=== PATIENT | male | born 1945 | race Caucasian/White ===

== ENCOUNTER 2018-04-07 13:33 | Observation (INO) | payer OTHER ==
[2018-04-07 13:38] VITALS: BMI 22.7
[2018-04-07] MEDS ORDERED: SODIUM CHLORIDE 1,000 ML IV STA (14:42)
--- NOTE | 2018-04-07 14:42 | PDOC ---
History of Present Illness <Kirstin Villanueva - Last Filed: 04/07/18 15:29> - General History Source: Patient Exam Limitations: No Limitations - History of Present Illness Initial Comments: 04/07/18 16:41 Mr. 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 The patient states he is visiting [place] from [place], he was at a [facility] earlier today with his police and EMS friends. The patient states around 1:00 pm he received a call from his brother, who reported that his younger brother just . The patient reports he was trying to call his sister when a sudden onset of lightheadedness and generalized weakness presented. The patient reports he immediately sat down. The patient states his friends noticed that he was pale, and called EMS. The patient reports the firefighters gave him an ASA, with mild relief. Patient denies chest pain, shortness of breath or N/V. The patient reports 2 previous similar episode with the onset his PCP states was secondary to hypoglycemia from not eating anything. The patient reports he didnt have much to eat today. The patient reports being compliant with his medications today. ROS (+) Weakness and lightheadedness ROS (-) Chest pain, SOB, diaphoresis, fever, chills, nausea, vomiting, pain, LOC or falling. Denies the discomfort is similar to prior MT. At the ED, patient denies feeling lightheaded or weak. Allergies: Social history: Social use of alcohol. No past or present use of tobacco or recreational drugs. Surgical history: Cardiac Cath and Pacemaker. PCP: In [place]. <Paulette Heart - Last Filed: 04/07/18 16:45> - General Chief Complaint: Weakness Stated Complaint: Weakness Time Seen by Provider: 04/07/18 14:22 Past History <Kirstin Villanueva - Last Filed: 04/07/18 15:29> - Past Medical History Asthma: Yes Cardiac Disorders: Yes (MT, PACEMAKER) COPD: No HTN: Yes Hypercholesterolemia: Yes - Surgical History Cardiac Surgery: Yes (PACEMAKER) - Suicide/Smoking/Psychosocial Hx Smoking History: Never smoked <Paulette Heart - Last Filed: 04/07/18 16:45> - Past Medical History Allergies/Adverse Reactions: Allergies Allergy/AdvReac Type Severity Reaction Status Date / Time No Known Allergies Allergy Verified 04/07/18 13:37 Home Medications: Ambulatory Orders Aspirin 81 mg PO DAILY 04/07/18 Clopidogrel Bisulfate [Plavix -] 75 mg PO DAILY 04/07/18 Review of Systems - Review of Systems Able to Perform ROS?: Yes Comments:: 04/07/18 16:41 GENERAL/CONSTITUTIONAL: (+) Generalized weakness. No fever or chills. no sweats. HEAD, EYES, EARS, NOSE AND THROAT: No change in vision or hearing. No ear pain or discharge. No sore throat or mouth pain. No difficulty swallowing. No congestion. CARDIOVASCULAR: No chest pain or palpitations, syncope or edema. +near syncope RESPIRATORY: No SOB, cough, wheezing, or hemoptysis. GASTROINTESTINAL No nausea/vomiting. No diarrhea or constipation. No bloody stools. GENITOURINARY: No hematuria, dysuria, frequency, urgency or other changes. MUSCULOSKELETAL: No joint or muscle swelling or pain. No neck or back pain. SKIN: No rash or changes in skin color or lesions. NEUROLOGIC: (+) Lightheadedness. No headache, vertigo, loss of consciousness, or change in strength/sensation. No gait instability. HEMATOLOGIC/LYMPHATIC: No anemia, easy bruising/bleeding, or history of blood clots. ALLERGIC/IMMUNOLOGIC: No allergies All other systems reviewed and negative, or as documented in HPI. <Paulette Heart - Last Filed: 04/07/18 16:45> *Physical Exam - Vital Signs Last Vital Signs Temp Pulse Resp BP Pulse Ox 98.5 F 62 18 127/70 96 04/07/18 13:34 04/07/18 13:34 04/07/18 13:34 04/07/18 13:34 04/07/18 13:34 - Physical Exam Comments: 04/07/18 15:29 General: Well appearing, awake and alert, NAD. HEENT: NCAT, PERRL, EOMI, clear conjunctiva, anicteric, moist mucus membranes, clear oropharynx, no oral lesions.. Neck: neck supple, FROM Resp: CTAB, normal and even respirations, no respiratory distress CVS: RRR, no murmurs, 2+ peripheral pulses throughout, no peripheral edema Abdomen: soft, NTND, no peritoneal signs. Back: nontender, normal inspection and ROM MSK: no edema, [place] x4, ROM intact. No clubbing or cyanosis. normal bulk and tone. Neuro: alert, oriented appropriately; no focal neurologic deficits Skin: warm and well perfused, cap refill <2 sec, normal color <Kirstin Villanueva - Last Filed: 04/07/18 15:29> - Vital Signs Last Vital Signs Temp Pulse Resp BP Pulse Ox 98.5 F 62 18 127/70 96 04/07/18 13:34 04/07/18 13:34 04/07/18 13:34 04/07/18 13:34 04/07/18 13:34 <Paulette Heart - Last Filed: 04/07/18 16:45> Procedures - Bedside Ultrasound Bedside Ultrasound: Cardiac Remarks: 04/07/18 15:08 POCUS echo performed, indication includes dizziness/near syncope. views obtained (PSLA, PSS, A4, SX). Findings include normal EF >50% with good contractility, no pericardial effusion. Normal aortic root <4cm. RV<LV. Impression: no acute findings. 04/07/18 16:45 <Paulette Heart - Last Filed: 04/07/18 16:45> ED Treatment Course - LABORATORY CBC & Chemistry Diagram: 04/07/18 15:13 04/07/18 15:13 <Kirstin Villanueva - Last Filed: 04/07/18 15:29> - LABORATORY CBC & Chemistry Diagram: 04/07/18 15:13 04/07/18 15:13 <Paulette Heart - Last Filed: 04/07/18 16:45> Medical Decision Making - Medical Decision Making 04/07/18 14:43 72 YOM with h/o symptomatic bradycardia s/p PPM, HTN, HLD, CAD (last cath in 2016, with ~50% obstruction) on ASA and plavix, asthma presenting with acute onset of weakness, dizziness, palpitations and shakiness since 1pm, when he found out his brother . vitals wnl, normal rate and normotensive. EKG AV Paced pattern at 60 bpm. heart score cannot be applied, no cp or sob. however +dizziness/near syncope. POCUS echo with normal EF, no pericardial effusion, normal Ao root <3cm and RV< LV, no acute findings. trop negative x1, lytes and labs wnl. DDx includes ACS, angina, chest pain NOS, costochondritis, GERD, pleurisy, anxiety, esophageal spasm. Low suspicion for pulmonary embolism or dissection with POCUS findings. Plan for admit hospitalist team, telemetry observation, ppm interrogation, formal comprehensive echo, to r/o ischemia, serial trops and EKG/tele monitoring with stressing event.. pt made aware of impression and plan, agreeable. 04/07/18 16:42 04/07/18 16:44 04/07/18 16:44 <Paulette Heart - Last Filed: 04/07/18 16:45> *DC/Admit/Observation/Transfer - Attestations Scribe Attestion: 04/07/18 15:29 Documentation prepared by Kirstin Villanueva, acting as medical services manager for Paulette Heart MD. <Kirstin Villanueva - Last Filed: 04/07/18 15:29> - Discharge Dispostion Decision to Admit order: Yes Decision to Admit order Date/Time: 04/07/18 16:44 Decision to Admit Order Category Date Time Status Decision to Admit to Hospital Routine Admission 04/07/18 15:46 Active <Paulette Heart - Last Filed: 04/07/18 16:45> Diagnosis at time of Disposition: Near syncope, Weakness - Discharge Dispostion Condition at time of disposition: Good
[2018-04-07 15:29] LABS: BASO % 0.4 % (0-2.0); EOS % 1.2 % (0-4.5); HEMATOCRIT 40.3 % (35.4-49); HEMOGLOBIN 13.4 GM/dL (11.7-16.9); LYMPH % 11.7 % (8-40); MCH 31.7 pg (25.7-33.7); MCHC 33.2 g/dl (32.0-35.9); MEAN CELL VOLUME 95.5 fl (80-96); MEAN PLT VOLUME 8.4 fl (7.5-11.1); MONO % 9.9 % (3.8-10.2); NEUT % 76.8 % (42.8-82.8); PLATELET COUNT 265 K/MM3 (134-434); RBC 4.22 M/mm3 (4.00-5.60); RDW 13.7 % (11.9-15.9); WHITE BLOOD COUNT 8.1 K/mm3 (4.0-10.0)
[2018-04-07 15:44] LABS: ALBUMIN 3.4 g/dl (3.4-5.0); ALK PHOS 61 U/L (45-117); ANION GAP 10 MMOL/L (8-16); BILIRUBIN,TOTAL 0.5 mg/dL (0.2-1); BLOOD UREA NITROGEN 19 mg/dL (7-18); CALCIUM 8.8 mg/dL (8.5-10.1); CHLORIDE 109 mmol/L (98-107); CO2 22 mmol/L (21-32); CREATININE 1.1 mg/dL (0.55-1.3); GLUCOSE,RANDOM 94 mg/dL (74-106); POTASSIUM 4.2 mmol/L (3.5-5.1); SGOT/AST 14 U/L (15-37); SGPT/ALT 25 U/L (13-61); SODIUM 141 mmol/L (136-145); TOT PROT 6.6 g/dl (6.4-8.2)
--- NOTE | 2018-04-07 16:13 | PN ---
Teaching Attending Note Name of Resident: John Salmeron ATTENDING PHYSICIAN STATEMENT I saw and evaluated the patient. I reviewed the resident's note and discussed the case with the resident. I agree with the resident's findings and plan as documented with exceptions below. SUBJECTIVE: 72 yom with PMHx of symptomatic bradycardia s/p PPM, Non obstructive CAD on cath 2015, HTN, HLD, heard the news that his brother today, after felt weak, washed out, was noted palor and assisted to a chair and drank some water. Symptoms resolved but was advised to come to ED. Symptoms full resolved before arrival to the ED, no recurrence since. Minimal PO intake today. SImilar episode 6 months ago when was admitted and reportedly had echo with no concerns. Gives h/o positional dizziness. Patient has been uptodate with his cardiac follow up, last stress test in 12/2017 , reportedly unremarkable. due for his PPM battery change soon, no concerns otherwise. OBJECTIVE: Vital Signs Period Temp Pulse Resp BP Sys/Mae Pulse Ox Last 24 Hr 98.5 F 62 18 127/70 96 Intake & Output 04/04/18 04/05/18 04/06/18 04/07/18 23:59 23:59 23:59 23:59 Weight 177 lb GENERAL: Awake, alert, and fully oriented, in no acute distress. HEAD: Normal with no signs of trauma. EYES: Pupils equal, round and reactive to light, extraocular movements intact, sclera anicteric, conjunctiva clear. No lid lag. EARS, NOSE, THROAT: Ears normal, nares patent, oropharynx clear without exudates. Moist mucous membranes. NECK: Normal range of motion, supple without lymphadenopathy, JVD, or masses, no carotid bruit. LUNGS: Breath sounds equal, clear to auscultation bilaterally. No wheezes, and no crackles. No accessory muscle use. HEART: Regular rate and rhythm, normal S1 and S2 without murmur, rub or gallop. ABDOMEN: Soft, nontender, not distended, normoactive bowel sounds, no guarding, no rebound, no masses. No hepatomegaly or splenomegaly. MUSCULOSKELETAL: Normal range of motion at all joints. No bony deformities or tenderness. No CVA tenderness. UPPER EXTREMITIES: 2+ pulses, warm, well-perfused. No cyanosis. No clubbing. No peripheral edema. LOWER EXTREMITIES: 2+ pulses, warm, well-perfused. No calf tenderness. No peripheral edema. NEUROLOGICAL: Cranial nerves II-XII intact. Normal speech. AAOx3, facial symmetry, power 5/5 tongue midline, physiological left mouth angular sagging corrected when checking power of facial muscles non focal exam, intact to light touch, PSYCHIATRIC: Cooperative. Good eye contact. Appropriate mood and affect. SKIN: Warm, dry, normal turgor, no rashes or lesions noted, normal capillary refill. Home Medications Medication Instructions Recorded Aspirin 81 mg PO DAILY 04/07/18 Clopidogrel Bisulfate [Plavix -] 75 mg PO DAILY 04/07/18 Active Medications Aspirin (Asa -) 81 mg PO DAILY [facility] Clopidogrel Bisulfate (Plavix -) 75 mg PO DAILY [facility] Enoxaparin Sodium (Lovenox -) 40 mg SQ DAILY [facility] Laboratory Results - last 24 hr 04/07/18 04/07/18 15:13 15:13 WBC 8.1 RBC 4.22 Hgb 13.4 Hct 40.3 MCV 95.5 MCH 31.7 MCHC 33.2 RDW 13.7 Plt Count 265 MPV 8.4 Absolute Neuts (auto) 6.2 Neutrophils % 76.8 Lymphocytes % 11.7 Monocytes % 9.9 Eosinophils % 1.2 Basophils % 0.4 Nucleated RBC % 0 Sodium 141 Potassium 4.2 Chloride 109 H Carbon Dioxide 22 Anion Gap 10 BUN 19 H Creatinine 1.1 Creat Clearance w eGFR > 60 Random Glucose 94 Calcium 8.8 Total Bilirubin 0.5 AST 14 L ALT 25 Alkaline Phosphatase 61 Troponin I < 0.02 Total Protein 6.6 Albumin 3.4 EKG: AV pacing CXR: pending ASSESSMENT AND PLAN: 72 yom with PMHx of above admitted with episode weakness/pallor after hearing news of his brother's . -Weakness/pallor,suspect pallor, r/o arrhtymia, low suspicion for ischemic etiology, unlikely neurological -bradycardia s/p PPM -Mild dehydration -Positional dizziness -Non obstructive CAD Plan; Telemetry, repeat trop. PPM check. Encourage oral hydration. Continue ASA/plavix/statin. retrieve prior home meds. Cardiology input. Dispo d/c in 24 hours if no new events. Plan discussed with patient in detail, all questions answered. Total admit time 50 min.
--- NOTE | 2018-04-07 17:14 | HP ---
CHIEF COMPLAINT: weakness, palpitations PCP: in [place] HISTORY OF PRESENT ILLNESS: 72 year old male with a history of symptomatic bradycardia (s/p [employer] pacemaker placement 8 years ago, last interrogated year ago), hypertension, hyperlipidemia, coronary artery disease (last cath 2016 w/o stents , found 50% obstruction) presents for dizziness, weakness and palpitations at a picnic around 1 pm today. 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 Not more than 2 minutes after he received the call, he became very fatigued, dizzy and weak. Denied overt chest pain. He reports that he had this happen once before about 8 months ago without precipitating factors, for which he was hospitalized for 1 day and found everything to be normal. Reports that he is feeling much better now. Denies chest pain, SOB, nausea, vomiting, diarrhea, fevers, chills. Had colonoscopy 1 year ago that had 1 benign polyp that was removed. ER course was notable for: (1) trop normal (2) EKG AV paced rhythm (3) labs wnl Recent Travel: traveled from [place] PAST MEDICAL HISTORY: bradycardia, hypertension, hyperlipidemia, CAD PAST SURGICAL HISTORY: appendectomy, pacemaker placement ([employer]) Social History: Smoking: never Alcohol: occasional Drugs: never Family History: father with colon cancer Allergies No Known Allergies Allergy (Verified 04/07/18 13:37) HOME MEDICATIONS: Home Medications Medication Instructions Recorded Aspirin 81 mg PO DAILY 04/07/18 Clopidogrel Bisulfate [Plavix -] 75 mg PO DAILY 04/07/18 REVIEW OF SYSTEMS CONSTITUTIONAL: Absent: fever, chills, diaphoresis, generalized weakness, malaise, loss of appetite, weight change HEENT: Absent: rhinorrhea, nasal congestion, throat pain, throat swelling, difficulty swallowing, mouth swelling, ear pain, eye pain, visual changes CARDIOVASCULAR: Absent: chest pain, syncope, palpitations, irregular heart rate, lightheadedness , peripheral edema RESPIRATORY: Absent: cough, shortness of breath, dyspnea with exertion, orthopnea, wheezing, stridor, hemoptysis GASTROINTESTINAL: Absent: abdominal pain, abdominal distension, nausea, vomiting, diarrhea, constipation, melena, hematochezia GENITOURINARY: Absent: dysuria, frequency, urgency, hesitancy, hematuria, flank pain, genital pain MUSCULOSKELETAL: Absent: myalgia, arthralgia, joint swelling, back pain, neck pain SKIN: Absent: rash, itching, pallor HEMATOLOGIC/IMMUNOLOGIC: Absent: easy bleeding, easy bruising, lymphadenopathy, frequent infections ENDOCRINE: Absent: unexplained weight gain, unexplained weight loss, heat intolerance, cold intolerance NEUROLOGIC: Absent: headache, focal weakness or paresthesias, dizziness, unsteady gait, seizure, mental status changes, bladder or bowel incontinence PSYCHIATRIC: Absent: anxiety, depression, suicidal or homicidal ideation, hallucinations. PHYSICAL EXAMINATION Vital Signs - 24 hr 04/07/18 04/07/18 13:34 16:25 Temperature 98.5 F Pulse Rate 62 Pulse Rate [ 61 Apical] Respiratory 18 22 H Rate Blood Pressure 127/70 Blood Pressure 146/68 [Left Arm] O2 Sat by Pulse 96 98 Oximetry (%) GENERAL: Awake, alert, and fully oriented, in no acute distress. HEAD: Normal with no signs of trauma. EYES: Pupils equal, round and reactive to light, extraocular movements intact, sclera anicteric, conjunctiva clear. No lid lag. EARS, NOSE, THROAT: Ears normal, nares patent, oropharynx clear without exudates. Moist mucous membranes. NECK: Normal range of motion, supple without lymphadenopathy, JVD, or masses. LUNGS: Breath sounds equal, clear to auscultation bilaterally. No wheezes, and no crackles. No accessory muscle use. HEART: Regular rate and rhythm, normal S1 and S2 without murmur, rub or gallop. ABDOMEN: Soft, nontender, not distended, normoactive bowel sounds, no guarding, no rebound, no masses. No hepatomegaly or splenomegaly. MUSCULOSKELETAL: Normal range of motion at all joints. No bony deformities or tenderness. No CVA tenderness. UPPER EXTREMITIES: 2+ pulses, warm, well-perfused. No cyanosis. No clubbing. No peripheral edema. LOWER EXTREMITIES: 2+ pulses, warm, well-perfused. No calf tenderness. No peripheral edema. NEUROLOGICAL: Cranial nerves II-XII intact. Normal speech. Normal gait. PSYCHIATRIC: Cooperative. Good eye contact. Appropriate mood and affect. SKIN: Warm, dry, normal turgor, no rashes or lesions noted, normal capillary refill. Laboratory Results - last 24 hr 04/07/18 04/07/18 15:13 15:13 WBC 8.1 RBC 4.22 Hgb 13.4 Hct 40.3 MCV 95.5 MCH 31.7 MCHC 33.2 RDW 13.7 Plt Count 265 MPV 8.4 Absolute Neuts (auto) 6.2 Neutrophils % 76.8 Lymphocytes % 11.7 Monocytes % 9.9 Eosinophils % 1.2 Basophils % 0.4 Nucleated RBC % 0 Sodium 141 Potassium 4.2 Chloride 109 H Carbon Dioxide 22 Anion Gap 10 BUN 19 H Creatinine 1.1 Creat Clearance w eGFR > 60 Random Glucose 94 Calcium 8.8 Total Bilirubin 0.5 AST 14 L ALT 25 Alkaline Phosphatase 61 Troponin I < 0.02 Total Protein 6.6 Albumin 3.4 ASSESSMENT/PLAN: 72 year old male with a history of symptomatic bradycardia (s/p [employer] pacemaker placement 8 years ago, last interrogated year ago), hypertension, hyperlipidemia, coronary artery disease (last cath 2015 w/o stents , found 50% obstruction) presents for dizziness, weakness and palpitations at a picnic around 1 pm today. #Fatigue, weakness, dizziness: likely 2/2 stress and emotional response to patient's brother passing away, but due to cardiac history, will admit for workup to rule out acute coronary syndrome -echocardiogram -last pacemaker interrogation was around 1 year ago, will get it interrogated -cardiology consulted Dr. Recinos -EKG AV paced rhythm -troponins normal -need to confirm plavix dose, pharmacy patient provided did not have plavix listed -atorvastatin 40mg #Hypertension -patient is on home metoprolol, patient does not remember the dose at this time , blood pressure is normal, watch tomorrow and resume once confirmed #Hyperlipidemia -give atorvastatin 40 #FEN -no standing fluids -lytes normal -cardiac diet #Prophylaxis -lovenox 40 #Disposition -admit tele obs Visit type - Emergency Visit Emergency Visit: Yes ED Registration Date: 04/07/18 Care time: The patient presented to the Emergency Department on the above date and was hospitalized for further evaluation of their emergent condition. - New Patient This patient is new to me today: Yes Date on this admission: 04/07/18 - Critical Care Critical Care patient: No Hospitalist Screening - Colonoscopy Questionnaire Colonoscopy Questionnaire: Colonoscopy Questionnaire - Patient: 50 - 75 years old and never had a screening colonoscopy: No History of colon or rectal polyps, or CA: No History of IBD, Crohn's disease or UC: No History of abdominal radiation therapy as a child: No - Relative: 1 with colon or rectal CA, or polyps at age 60 or younger: Yes Colon or rectal CA diagnosed at age 45 or younger: No Multiple relatives with colon or rectal CA: Yes - Outcome: Screening Result: Positive Screen
[2018-04-07] MEDS: ENOXAPARIN NA (PORCINE) 40 MG/0.4 ML DISP.SYRIN SQ SCH (19:02)
[2018-04-07] MEDS ORDERED: ATORVASTATIN CA 40 MG TABLET (FP) PO SCH (22:00)
--- NOTE | 2018-04-07 23:00 | EKG ---
Test Reason : Blood Pressure : / mmHG Vent. Rate : 060 BPM Atrial Rate : 059 BPM P-R Int : 000 ms QRS Dur : 172 ms QT Int : 464 ms P-R-T Axes : 094 -76 086 degrees QTc Int : 464 ms AV dual-paced rhythm ABNORMAL ECG NO PREVIOUS ECGS AVAILABLE Confirmed by EMILY FAJARDO MD ([id number]) on 04/07/2018 11:00:09 PM Referred By: Confirmed By:EMILY FAJARDO MD
[2018-04-08 07:00] VITALS: PULSE 63
[2018-04-08 07:22] LABS: HEMOGLOBIN 12.4 GM/dL (11.7-16.9); MCH 31.7 pg (25.7-33.7); MCHC 33.4 g/dl (32.0-35.9); MEAN CELL VOLUME 94.8 fl (80-96); MEAN PLT VOLUME 8.5 fl (7.5-11.1); PLATELET COUNT 223 K/MM3 (134-434); RDW 13.9 % (11.9-15.9); WHITE BLOOD COUNT 6.7 K/mm3 (4.0-10.0)
--- NOTE | 2018-04-08 08:39 | CON.CARD ---
Consult Consult Specialty:: cardiology Reason for Consultation:: pre syncope - History of Present Illness Chief Complaint: Pt A&Ox3; asymptomatic History of Present Illness: Bao Hernandes is a 72-year-old male with past medical history significant for TN 2 years ago with cardiac cath that showed 50% blockage no stents placement, on Plavix, pacemaker placement (battery replacement may be needed within a year) for bradycardia (2009), HTN, asthma,and HLD presents to the emergency department with weakness and lightheadedness since 1:00 pm today. The patient states [place], he was at a [facility] earlier today with his police and EMS friends. The patient states around 1:00 pm he received a call from his brother, who reported that his younger brother just . The patient reports he was trying to call his sister when a sudden onset of lightheadedness and generalized weakness presented. The patient reports he immediately sat down. The patient states his friends noticed that he was pale, and called EMS. The patient reports the firefighters gave him an ASA, with mild relief. Patient denies chest pain, shortness of breath or N/V. The patient reports 2 previous similar episode with the onset his PCP states was secondary to hypoglycemia from not eating anything. The patient reports he didnt have much to eat today. The patient reports being compliant with his medications today. ROS (+) Weakness and lightheadedness ROS (-) Chest pain, SOB, diaphoresis, fever, chills, nausea, vomiting, pain, LOC or falling. Denies the discomfort is similar to prior TN. At the ED, patient denies feeling lightheaded or weak. Allergies: Social history: Social use of alcohol. No past or present use of tobacco or recreational drugs. Surgical history: Cardiac Cath and Pacemaker. - History Source History Provided By: Patient, Medical Record Limitations to Obtaining History: No Limitations - Past Medical History Cardio/Vascular: Yes: CAD, CHF, HTN, TN, Other (s/p PPM) Pulmonary: Yes: Asthma - Past Surgical History Additional Surgical History: coronary angiogram - Smoking History Smoking history: Former smoker Have you smoked in the past 12 months: No Home Medications - Allergies Allergies/Adverse Reactions: Allergies Allergy/AdvReac Type Severity Reaction Status Date / Time No Known Allergies Allergy Verified 04/07/18 13:37 - Home Medications Home Medications: Ambulatory Orders Aspirin 81 mg PO DAILY 04/07/18 Clopidogrel Bisulfate [Plavix -] 75 mg PO DAILY 04/07/18 Family Disease History - Family Disease History Family Disease History: Heart Disease: Brother ( yesterday after completeing a triathalon) Review of Systems - Review of Systems Constitutional: reports: No Symptoms Eyes: reports: No Symptoms HENT: reports: No Symptoms Neck: reports: No Symptoms Cardiovascular: reports: No Symptoms Respiratory: reports: No Symptoms Gastrointestinal: reports: No Symptoms Genitourinary: reports: No Symptoms Breasts: reports: No Symptoms Reported Musculoskeletal: reports: No Symptoms Integumentary: reports: No Symptoms Neurological: reports: No Symptoms Endocrine: reports: No Symptoms Hematology/Lymphatic: reports: No Symptoms Psychiatric: reports: Anxiety (emotional shock (hearing of unexpected of brother) just before the near-faint) - Risk Factors Known Risk Factors: Yes: Age, Gender, Hypercholesterolemia, Hypertension, Prior TN /Emb Stroke Vital Signs: Vital Signs Temperature 97.8 F 04/08/18 06:00 Pulse Rate 63 04/08/18 06:00 Respiratory Rate 04/08/18 06:00 Blood Pressure 127/60 04/08/18 06:00 O2 Sat by Pulse Oximetry (%) 98 04/08/18 03:07 Constitutional: Yes: Anxious Eyes: Yes: WNL HENT: Yes: WNL Neck: Yes: WNL Respiratory: Yes: WNL Gastrointestinal: Yes: WNL Renal/: No: Anuria Cardiovascular: Yes: WNL JVD: No Carotid Bruit: No PMI: Non-Displaced Heart Sounds: Yes: S1, Split S2 Musculoskeletal: Yes: WNL Extremities: Yes: WNL Edema: No Peripheral Pulses WNL: Yes Integumentary: Yes: WNL Neurological: Yes: WNL ...Motor Strength: WNL Psychiatric: Yes: Alert, Oriented, Other - Other Data Labs, Other Data: CBC, BMP 04/08/18 06:20 Troponin, BNP 04/07/18 04/07/18 15:13 21:10 Troponin I < 0.02 < 0.02 Troponin, BNP 04/07/18 04/07/18 15:13 21:10 Troponin I < 0.02 < 0.02 Imaging - Results Chest X-ray: Image Reviewed EKG: Image Reviewed (AV dual-paced rhythm) Problem List - Problems (1) State of emotional shock and stress Assessment/Plan: profound shock at hearing yesterday that his older brother had just after completing a triathalon. F/u orrthostatic VS TSH GLucose checks WNL. Keep hydrated. Consider anxiolytic medication. Psychological counseling. Code(s): R45.7 - STATE OF EMOTIONAL SHOCK AND STRESS, UNSPECIFIED (2) Status post myocardial infarction Assessment/Plan: hx TN 2 years ago with 50% lesion; no PIC done. Stress MIBI 12/2017 reportedly negative for ishcemia (done in [place]). TNI < 0.02 x 3 this admission. No acute STT changes on EKG; no arrhythmias or pauses on telemetry; pt has PPM. From cardiac standpoint, pt may be followed as outpatient. Consider at least temporary treatment for anxiety/depression. Code(s): I25.2 - OLD MYOCARDIAL INFARCTION (3) Hyperlipidemia Assessment/Plan: On lipitor; f/u lipid panel. F/u TSH. Code(s): E78.5 - HYPERLIPIDEMIA, UNSPECIFIED
[2018-04-08] MEDS ORDERED: ASPIRIN 81 MG CHEWABLE TABLETS PO SCH (10:00)
[2018-04-08] MEDS ORDERED: CLOPIDOGREL BISULFATE 75 MG TABLET (FP) PO SCH (10:00)
[2018-04-08] MEDS: ENOXAPARIN NA (PORCINE) 40 MG/0.4 ML DISP.SYRIN SQ SCH (10:04)
[2018-04-08 10:11] LABS: ANION GAP 10 MMOL/L (8-16); BLOOD UREA NITROGEN 21 mg/dL (7-18); CALCIUM 8.7 mg/dL (8.5-10.1); CHLORIDE 111 mmol/L (98-107); CHOLESTEROL 143 mg/dL (50-200); CO2 22 mmol/L (21-32); CREATININE 0.9 mg/dL (0.55-1.3); GLUCOSE,RANDOM 86 mg/dL (74-106); HDL CHOLESTEROL 58 mg/dL (40-60); PHOSPHOROUS 3.5 mg/dL (2.5-4.9); POTASSIUM 4.3 mmol/L (3.5-5.1); SODIUM 143 mmol/L (136-145); TRIGLYCERIDES 63 mg/dL (0-150)
--- NOTE | 2018-04-08 10:25 | DS ---
Physical Exam: SUBJECTIVE: Patient seen and examined, no events overnight. NO further concerns , ambulating well, tolerating diet. OBJECTIVE: Vital Signs Period Temp Pulse Resp BP Sys/Mae Pulse Ox Last 24 Hr 97.8 F-98.5 F 60-63 18-22 111-146/57-70 95-98 PHYSICAL EXAM GENERAL: sitting in bed, reading a book, no acute distress CVS:S1S2 regular Chest: CTAB, no rales or wheezing Abdomen:soft, NT, ND, positive bowel sounds Extremities: no edema Neuro: AAOX3, power 5/5 sensation intact and symmetric to light touch, EOMI, tongue midline, toes down going, no pronator drift, non focal and unchanged exam LABS Laboratory Results - last 24 hr 04/07/18 04/07/18 04/07/18 15:13 15:13 21:10 WBC 8.1 RBC 4.22 Hgb 13.4 Hct 40.3 MCV 95.5 MCH 31.7 MCHC 33.2 RDW 13.7 Plt Count 265 MPV 8.4 Absolute Neuts (auto) 6.2 Neutrophils % 76.8 Lymphocytes % 11.7 Monocytes % 9.9 Eosinophils % 1.2 Basophils % 0.4 Nucleated RBC % 0 Sodium 141 Potassium 4.2 Chloride 109 H Carbon Dioxide 22 Anion Gap 10 BUN 19 H Creatinine 1.1 Creat Clearance w eGFR > 60 Random Glucose 94 Hemoglobin A1c % Calcium 8.8 Phosphorus Magnesium Total Bilirubin 0.5 AST 14 L ALT 25 Alkaline Phosphatase 61 Creatine Kinase 38 Troponin I < 0.02 < 0.02 Total Protein 6.6 Albumin 3.4 Triglycerides Cholesterol Total LDL Cholesterol HDL Cholesterol TSH 04/08/18 04/08/18 04/08/18 06:20 06:20 06:20 WBC 6.7 RBC 3.90 L Hgb 12.4 Hct 37.0 MCV 94.8 MCH 31.7 MCHC 33.4 RDW 13.9 Plt Count 223 MPV 8.5 Absolute Neuts (auto) Neutrophils % Lymphocytes % Monocytes % Eosinophils % Basophils % Nucleated RBC % Sodium 143 Potassium 4.3 Chloride 111 H Carbon Dioxide 22 Anion Gap 10 BUN 21 H Creatinine 0.9 Creat Clearance w eGFR > 60 Random Glucose 86 Hemoglobin A1c % 5.4 Calcium 8.7 Phosphorus 3.5 Magnesium 2.0 Total Bilirubin AST ALT Alkaline Phosphatase Creatine Kinase Troponin I Total Protein Albumin Triglycerides 63 Cholesterol 143 Total LDL Cholesterol 75 HDL Cholesterol 58 TSH 1.73 04/08/18 06:20 WBC RBC Hgb Hct MCV MCH MCHC RDW Plt Count MPV Absolute Neuts (auto) Neutrophils % Lymphocytes % Monocytes % Eosinophils % Basophils % Nucleated RBC % Sodium Potassium Chloride Carbon Dioxide Anion Gap BUN Creatinine Creat Clearance w eGFR Random Glucose Hemoglobin A1c % Calcium Phosphorus Magnesium Total Bilirubin AST ALT Alkaline Phosphatase Creatine Kinase Troponin I Total Protein Albumin Triglycerides Cholesterol Total LDL Cholesterol HDL Cholesterol TSH Cancelled HOSPITAL COURSE: Date of Admission:04/07/18 Date of Discharge: 04/08/18 Minutes to complete discharge: 35 Discharge Summary Reason For Visit: PRE SYNCOPE Current Active Problems Hyperlipidemia (Acute) Near syncope (Acute) State of emotional shock and stress (Acute) Status post myocardial infarction (Acute) Weakness (Acute) Hospital Course: Patient was watched on telemetry with paced rhythm. His PPM was interrogated with no concerns. No further events were noted inhouse. He was advised adequate hydration and avoid sudden postural changes. He was evaluated by cardiology and deemed stable for discharge. Condition: Good - Instructions Diet, Activity, Other Instructions: You were watched on monitor with no concerns. Your Pacemaker was interrogated. Recommend rest, light activity and adequate hydration over next few days and resume activities as tolerated. Avoid sudden postural changes. COntinue all your medications as before. Call 911 or come to ED if any new dizziness, or new concerns noted. Disposition: HOME - Home Medications Comprehensive Discharge Medication List: Ambulatory Orders RX: Aspirin 81 mg PO DAILY 04/07/18 RX: Clopidogrel Bisulfate [Plavix -] 75 mg PO DAILY 04/07/18 This patient is new to me today: No Emergency Visit: Yes ED Registration Date: 04/07/18 Care time: The patient presented to the Emergency Department on the above date and was hospitalized for further evaluation of their emergent condition. Critical Care patient: No - Discharge Referral Referred to [facility] No
[2018-04-08 12:07] VITALS: BP 140/78; TEMP 97.7
--- NOTE | 2018-04-09 06:29 | EKG ---
Test Reason : Blood Pressure : / mmHG Vent. Rate : 060 BPM Atrial Rate : 681 BPM P-R Int : 000 ms QRS Dur : 158 ms QT Int : 452 ms P-R-T Axes : 000 -80 093 degrees QTc Int : 452 ms AV dual-paced rhythm ABNORMAL ECG WHEN COMPARED WITH ECG OF 07-APR-2018 14:44, NO SIGNIFICANT CHANGE WAS FOUND Confirmed by EMILY FAJARDO MD ([id number]) on 04/09/2018 6:29:05 AM Referred By: Simona GODOY Confirmed By:EMILY FAJARDO MD
== END 2018-04-08 12:47 | disposition home or self-care (01) | DRG 149 ==
LOC: JER 13:33 → JERBED 16:42 → INTOOBSV 19:11 → OBSVTOIN 19:11 → J4W 20:49
PROVIDERS: ADMIT Hospitalist; ATTEND Hospitalist
PROC: 3E0337Z Introduction of Electrolytic and Water Balance Substance into Peripheral Vein, Percutaneous Approach (ICD-10-PCS; principal; 2018-04-07)
PROC: 3E013GC Introduction of Other Therapeutic Substance into Subcutaneous Tissue, Percutaneous Approach (ICD-10-PCS; 2018-04-07)
DX: R42 Dizziness and giddiness (principal); I25.2 Old myocardial infarction; J45.909 Unspecified asthma, uncomplicated; I10 Essential (primary) hypertension; E78.5 Hyperlipidemia, unspecified; I25.10 Atherosclerotic heart disease of native coronary artery without angina pectoris; E86.0 Dehydration; R45.7 State of emotional shock and stress, unspecified; Z79.01 Long term (current) use of anticoagulants; Z95.0 Presence of cardiac pacemaker; Z79.82 Long term (current) use of aspirin; Z98.61 Coronary angioplasty status
CPT/HCPCS: 36415; 71046-TC-FY; 80048; 80053; 80061; 82550; 83036; 83721; 83735; 84100; 84443; 84484; 85025; 85027; 93005; 93010; 96360; 96372; 99285-25; G0378; J7030